=== PATIENT | male | born 1975 | race American Indian/Alaskan Native ===

== ENCOUNTER 2018-03-20 19:19 | Emergency (ER) | payer BC ==
[2018-03-20 20:05] VITALS: BP 149/98
[2018-03-20] MEDS ORDERED: TYLENOL PO ONE (22:50)
[2018-03-20] MEDS ORDERED: TYLENOL ONE (22:53)
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
== END 2018-03-21 02:35 | disposition home or self-care (01) ==
LOC: ED 19:19
DX: S01.112A Laceration without foreign body of left eyelid and periocular area, initial encounter (principal); E11.9 Type 2 diabetes mellitus without complications; W26.8XXA Contact with other sharp object(s), not elsewhere classified, initial encounter; Y93.89 Activity, other specified; Y92.89 Other specified places as the place of occurrence of the external cause; Y99.8 Other external cause status
CPT/HCPCS: 99282